=== PATIENT | male | born 1950 | race Caucasian/White ===

== ENCOUNTER 2017-08-02 15:31 | Outpatient (CLI) | payer MEDICARE, OTHER ==
[~2017-08-02 15:31] MED LIST: ASPIR-LOW81 MG PO; AVELOX400 MG PO; CLARITIN10 M2 PO; DAILY MULTIPLE1 EACH PO; FLAX SEED OIL1000 MG PO; GLUCOPHAGE850 MG PO; KRILL OIL500 MG PO; LOVAZA1 GM PO; NEXIUM40 MG ORAL; NIACIN500 M2 PO; PROSCAR5 MG PO; QNASL8.7 GM NS; RED YEAST RICE600 MG PO; STRIBILD TABLE1 EACH PO; SYMBICORT 1601 PUFFS INH; TESTIM5 GM TD; TOBRAMYCIN 0.3% BOTH EYES; TRILIPIX135 MG PO; VITAMIN D400 INTLU PO; ZESTRIL20 MG ORAL; ZETIA10 MG PO
--- NOTE | 2017-08-02 16:21 | Diagnostic Imaging Report ---
Indication: Pain status post injury Technique: Continuous helical CT scanning of the head was performed utilizing automated exposure control without intravenous contrast material. Axial and coronal reconstructions were obtained. Comparison: None CT dose: Total DLP 1340.72 mGycm; CTDI vol 70.38 mGy Findings: There is no acute intracranial hemorrhage, mass effect or cortical edema. The ventricles, cisterns and sulci are normal for age. There is minimal periventricular hypoattenuation, a nonspecific finding suggestive of chronic microvascular ischemic changes. The posterior fossa and fourth ventricle are unremarkable. Sellar and suprasellar regions are grossly unremarkable. There is no depressed calvarial fracture. No focal soft tissue swelling/scalp hematoma is evident. Visualized paranasal sinuses and mastoid air cells are clear. Imaged portions of the orbits grossly unremarkable. IMPRESSION: No evidence of acute intracranial hemorrhage, mass effect or cortical edema. MRI may be obtained for more sensitive evaluation as clinically indicated. The CT scanner at [facility] is accredited by the [employer] and the scans are performed using protocols designed to limit radiation exposure to as low as reasonably achievable to attain images of sufficient resolution adequate for diagnostic evaluation.
== END 2017-08-02 17:31 | disposition home or self-care (01) ==
LOC: CAT 15:31
DX: R51 Headache (principal)
CPT/HCPCS: 70450